=== PATIENT | female | born 1960 | race Caucasian/White ===

== ENCOUNTER → 2017-04-11 | Outpatient (CLI) | payer OTHER ==
[~2017-04-11] MED LIST: ESTER-C 1,0001 EACH PO; FOLIC ACID1 MG PO; LOSARTAN POTASS50 MG PO; OMEPRAZOLE40 M1 PO; ZYRTEC10 M3 PO
== END | disposition home or self-care (01) ==
LOC: NUC 08:27
DX: R14.0 Abdominal distension (gaseous) (principal); R10.13 Epigastric pain
CPT/HCPCS: 78264; A9541